=== PATIENT | female | born 1940 | race Hispanic/Latino ===

== ENCOUNTER 2018-04-30 09:25 | Emergency (ER) | payer MEDICARE ==
[~2018-04-30] VITALS: Ht 167.6 cm; Wt 98.9 kg
[2018-04-30] MEDS ORDERED: SODIUM CHLORIDE 0.9% 1000ML 1,000 ML IV SCH (09:45)
[2018-04-30] MEDS ORDERED: METOCLOPRAMIDE HCL 10 MG/2ML VIAL IV ONE (09:45)
[2018-04-30] MEDS ORDERED: DIPHENHYDRAMINE HCL 25 MG CAP PO ONE (09:45)
[2018-04-30] MEDS ORDERED: LOSARTAN-HCTZ1 EAC2 PO (09:46)
[2018-04-30] MEDS ORDERED: GLIPIZIDE5 MG PO (09:48)
[2018-04-30] MEDS ORDERED: LEVOTHYROXINE50 MCG PO (09:48)
[2018-04-30] MEDS ORDERED: ULTRAM 50MG50 MG PO (09:48)
[2018-04-30] MEDS ORDERED: LYRICA75 MG PO (09:48)
[2018-04-30] MEDS ORDERED: ATORVASTATIN CA20 MG PO (09:48)
--- NOTE | 2018-04-30 10:37 | Diagnostic Imaging Report ---
EXAMINATION: Head CT HISTORY: Dizziness, severe migraine headache COMPARISON: None. TECHNIQUE: Multidetector axial images were obtained without contrast from the foramen magnum to the vertex . The images were reconstructed using brain and bone algorithms. Thin section brain images were reformatted into coronal and sagittal planes. Intravenous contrast: None. Image quality: Motion/streaking artifact limits the evaluation of the skull base and posterior cranial fossa. Dose modulation, iterative reconstruction, and/or weight based adjustment of the mA/kV was utilized to reduce the radiation dose to as low as reasonably achievable. FINDINGS: Parenchyma: 1. No abnormal densities. 2. No mass or hemorrhage. No CT evidence of acute territorial vascular insult. Extra-axial spaces:No abnormal density. No extra-axial fluid collections Brain volume: Normal for age. Ventricles: No hydrocephalus or displacement. Arteries: No density suggestive of thrombus. Dural sinuses: No abnormal density. Extra-axial spaces: No abnormal density. Foramen magnum: No mass, Chiari malformation, or basilar invagination. Sella: No obvious mass. Paranasal/mastoid sinuses: Imaged portions unremarkable. Skull/Scalp: No lytic or blastic lesions. No fractures. IMPRESSION: No intracranial abnormalities. Signed by: Dr. Holly Royal M.D. on 04/30/2018 10:33 AM
[2018-04-30] MEDS ORDERED: FIORINAL 50-321 EACH PO (12:38)
== END 2018-04-30 13:40 | disposition home or self-care (01) ==
LOC: ER 09:25
DX: G43.109 Migraine with aura, not intractable, without status migrainosus (principal)
CPT/HCPCS: 70450; 99283; J2765; J7030